=== PATIENT | female | born 1970 | race Caucasian/White ===

== ENCOUNTER 2019-11-26 15:58 | Outpatient (REF) | payer SELFPAY ==
[2019-11-26 18:33] LABS: HCT 42.5 % (36.0-46.0); HGB 14.1 g/dL (12.0-15.5); Mean Corp. HGB Concentration 33.2 g/dL (32.0-36.0); Mean Corpuscular Hemoglobin 28.8 pg (27.0-33.0); Mean Corpuscular Volume 86.9 fL (80-95); Mean Platelet Volume 12.9 fL (8.0-11.0); Platelet Count 259 x1000/uL (130-400); RBC 4.89 m/cumm (4.00-5.20); RBC Distribution Width 13.6 % (11.7-14.6); White Blood Cell Count 9.49 k/cumm (4.4-10.8)
[2019-11-26 18:53] LABS: ALT 32 U/L (14-59); AST 15 U/L (15-37); Albumin 4.2 g/dL (3.4-5.0); Alkaline Phosphatase 83 U/L (46-116); Anion Gap 9.8 mmol/L (3-11); BUN 14 mg/dL (7-18); Bilirubin, Total 0.4 mg/dL (0.2-1.0); CO2 26.2 mmol/L (21.0-32.0); CREATININE 0.91 mg/dL (0.55-1.02); Calcium 9.5 mg/dL (8.5-10.1); Chloride 100 mmol/L (98-107); Cholesterol 285 mg/dL (<200); Glucose 139 mg/dL (74-106); HDL Cholesterol 40 mg/dL (40-60); Potassium 4.3 mmol/L (3.5-5.1); Sodium 136 mmol/L (136-145); TSH (W/Ref FT4) 0.93 uIU/mL (0.36-3.74); Total Protein 7.3 g/dL (6.4-8.2); Triglyceride 515 mg/dL (<150)
[2019-11-26 19:10] LABS: LDL CHOLESTEROL 122 mg/dL (<100)
== END 2019-11-26 16:18 ==
LOC: NCHCN 15:58
PROVIDERS: Visit Provider Nurse Practitioner Family
DX: Z00.00 Encounter for general adult medical examination without abnormal findings (principal); N92.6 Irregular menstruation, unspecified
CPT/HCPCS: 80053; 80061; 83721; 85027; 84443

== ENCOUNTER 2020-03-07 14:12 | Outpatient (REF) | payer SELFPAY ==
[2020-03-09 21:26] LABS: SARS-CoV-2 RNA Undetected (Undetected); SARS-CoV-2 Specimen Source Nasopharynx
== END 2020-03-07 14:32 ==
LOC: NCHCN 14:12
PROVIDERS: PCP Nurse Practitioner Family; Visit Provider Nurse Practitioner Family
DX: Z20.828 Contact with and (suspected) exposure to other viral communicable diseases (principal)
CPT/HCPCS: U0003

== ENCOUNTER 2022-05-03 17:21 | Outpatient (REF) | payer OTHER, SELFPAY ==
--- NOTE | 2022-05-03 15:40 | PAPFT_PTH ---
PATIENT: Liss Morse LOC: [facility]#:[id number] AGE/SX: 51/F ROOM: RE05/03/[address]: Jeane Hauser : 1970 BED: DIS: 05/03/2022 SPEC #: [id number] RECD: 05/03/22 17:56 STATUS: SHAUN REPatrizia #: [id number] EILEEN: 05/03/22 15:[address]: Jeane Hauser DEPT: [facility] Cytology RECD BY: Klarissa Hughes Tissues: 1 - CX/ENDOCX FOR PAP SMEARS Procedures: PAP THIN PREP/[facility] Screening HPV DNA PROBE Comments: [id number]
== END 2022-05-03 17:22 | disposition home or self-care (01) ==
LOC: NCHCN 17:21
PROVIDERS: PCP Nurse Practitioner Family; Visit Provider Nurse Practitioner Family
DX: Z12.4 Encounter for screening for malignant neoplasm of cervix (principal); Z11.51 Encounter for screening for human papillomavirus (HPV); Z00.00 Encounter for general adult medical examination without abnormal findings
CPT/HCPCS: 88142; 87624

== ENCOUNTER 2022-08-26 16:35 | Outpatient (REF) | payer OTHER, SELFPAY ==
[2022-08-26 15:59] LABS: Anion Gap 9.1 mmol/L (3-11); BUN 18 mg/dL (7-18); CO2 26.9 mmol/L (21.0-32.0); CREATININE 1.2 mg/dL (0.55-1.02); Calcium 10.6 mg/dL (8.5-10.1); Chloride 107 mmol/L (98-107); Cholesterol 269 mg/dL (<200); Estimated GFR 55.15 (mL/min/1.73m2); Glucose 117 mg/dL (74-106); HDL Cholesterol 52 mg/dL (40-60); Potassium 5.3 mmol/L (3.5-5.1); Sodium 143 mmol/L (136-145); Triglyceride 471 mg/dL (<150)
[2022-08-26 16:14] LABS: LDL CHOLESTEROL 126 mg/dL (<100)
== END 2022-08-26 16:36 | disposition home or self-care (01) ==
LOC: NCHCN 16:35
PROVIDERS: PCP Nurse Practitioner Family; Visit Provider Nurse Practitioner Family
DX: E11.9 Type 2 diabetes mellitus without complications (principal); E78.1 Pure hyperglyceridemia
CPT/HCPCS: 80048; 80061; 83721

== ENCOUNTER 2025-01-31 12:49 | Outpatient (REF) | payer OTHER, SELFPAY ==
[2025-01-31 16:18] LABS: PROTEIN 21.4 mg/dL; Prot/Crea Ur Ratio 0.10
[2025-02-01 05:13] LABS: COMMENT (LAB VIEW ONLY) 199.20 mg/dL; Microalb ug/mg Crea 10.9 ug/mg Cr
== END 2025-01-31 12:50 | disposition home or self-care (01) ==
LOC: NCHCN 12:49
PROVIDERS: PCP Nurse Practitioner Family; Visit Provider Nurse Practitioner Family
DX: E11.69 Type 2 diabetes mellitus with other specified complication (principal)
CPT/HCPCS: 82043; 82565; 82570; 84156

== ENCOUNTER 2025-05-06 16:09 | Outpatient (REF) | payer OTHER, SELFPAY ==
--- NOTE | 2025-05-06 10:20 | PAPFT_PTH ---
PATIENT: Liss Morse LOC: [facility]#:[id number] AGE/SX: 54/F ROOM: RE05/06/[address]: Chayito Jimenez : 1970 BED: DIS: 05/06/2025 SPEC #: [id number] RECD: 05/06/25 16:32 STATUS: SHAUN REPatrizia #: [id number] EILEEN: 05/06/25 10:[address]: Chayito Jimenez DEPT: [facility] Cytology RECD BY: Klarissa Hughes Tissues: 1 - CX/ENDOCX FOR PAP SMEARS Procedures: PAP THIN PREP/[facility] Screening HPV DNA PROBE Comments: [id number] (HPV 16 & 18/45)
== END 2025-05-06 16:10 | disposition home or self-care (01) ==
LOC: NCHCN 16:09
PROVIDERS: PCP Nurse Practitioner Family; Visit Provider Nurse Practitioner Family
DX: Z12.4 Encounter for screening for malignant neoplasm of cervix (principal)
CPT/HCPCS: 88142; 87624